=== PATIENT | male | born 1955 | race Caucasian/White ===

== ENCOUNTER 2019-05-09 21:33 | Emergency (ER) | payer OTHER, MEDICARE, MEDICAID ==
[~2019-05-09] VITALS: Ht 152.4 cm; Wt 63.6 kg
[2019-05-09 21:39] VITALS: Ht 152.4 cm; Wt 63.6 kg
--- NOTE | 2019-05-09 21:42 | ERD ---
ER Documentation Chief Complaint Chief Complaint dizzy/palpitation HPI The patient is a 63-year-old male, presenting to the ER from dialysis center because of palpitation and dizziness. He has had dialysis for the last 5 months. Today during dialysis, he received Heparin bolus, he immediately felt palpitation and dizzy and nausea. He had similar symptoms last week during dialysis. Denies syncope, near syncope, neck pain, chest pain, abdominal pain, vomiting, dysuria, diarrhea. He does not smoke nor drink Past medical history: Chronic kidney disease on hemodialysis Wednesday and Wednesday, diabetes mellitus, hypertension, dyslipidemia Past surgical history: Right chest hemodialysis catheter, left upper extremity A V fistula ROS All systems reviewed and are negative except as per history of present illness. Medications Home Meds Reported Medications Ibuprofen* (Ibuprofen*) 800 Mg Tablet, 800 MG PO Q6H PRN for PAIN LEVEL -10 05/09/19 Carvedilol* (Carvedilol*) 6.25 Mg Tablet, 6.25 MG PO DAILY RADHA 1 TABLET BY MOUTH TWICE DAILY FOR 90 DAYS 05/09/19 Aspirin* (Aspirin* EC) 81 Mg Tablet.dr, 81 MG PO DAILY for 30 Days, #30 TAKE 1 TABLET BY MOUTH ONCE DAILY 05/09/19 Sevelamer Carbonate (Sevelamer Carbonate) 800 Mg Tablet, 800 MG PO TID for 30 Days, #90 05/09/19 Lisinopril/Hydrochlorothiazide (Lisinopril-Hctz 10-12.5 mg Tab) 1 Each Tablet, 1 TAB PO DAILY for 30 Days, #30 05/09/19 Allergies Allergies: Coded Allergies: No Known Allergy (Unverified , 05/09/19) Physical Exam Vitals Vital Signs Date Temp Pulse Resp B/P (MAP) Pulse Ox O2 O2 Flow FiO2 Time Delivery Rate 05/09/19 94 19 140/74 99 Room Air 23:17 (96) 05/09/19 99.9 110 20 174/79 99 21:39 (110) Physical Exam Const: No acute distress. Head: Atraumatic. Eyes: Normal Conjunctiva. ENT: Normal External Ears, Nose and Mouth. Neck: Full range of motion. No meningismus. Resp: Clear to auscultation bilaterally. Cardio: Regular tachycardic Abd: Soft, non distended, normal bowel sounds, non tender. Skin: No petechiae or rashes. Back: No midline or flank tenderness. Ext: No cyanosis, or edema. Neur: Awake and alert. No focal deficit Psych: Anxious. Result Diagram: 05/09/19215205/09/192152 Results 24 hrs Laboratory Tests Test 05/09/19 21:53 White Blood Count 8.0 10^3/ul Red Blood Count 3.56 10^6/ul Hemoglobin 10.8 g/dl Hematocrit 31.9 % Mean Corpuscular Volume 89.6 fl Mean Corpuscular Hemoglobin 30.3 pg Mean Corpuscular Hemoglobin Concent 33.9 g/dl Red Cell Distribution Width 16.4 % Platelet Count 206 10^3/UL Mean Platelet Volume 9.2 fl Immature Granulocytes % 0.400 % Neutrophils % 78.7 % Lymphocytes % 4.5 % Monocytes % 13.1 % Eosinophils % 2.4 % Basophils % 0.9 % Nucleated Red Blood Cells % 0.0 /100WBC Immature Granulocytes # 0.030 10^3/ul Neutrophils # 6.3 10^3/ul Lymphocytes # 0.4 10^3/ul Monocytes # 1.1 10^3/ul Eosinophils # 0.2 10^3/ul Basophils # 0.1 10^3/ul Nucleated Red Blood Cells # 0.0 10^3/ul Sodium Level 139 mmol/L Potassium Level 4.0 mmol/L Chloride Level 100 mmol/L Carbon Dioxide Level 26 mmol/L Anion Gap 13 Blood Urea Nitrogen 36 mg/dl Creatinine 6.62 mg/dl Est Glomerular Filtrat Rate mL/min 8 mL/min Glucose Level 186 mg/dl Calcium Level 9.7 mg/dl Troponin I 0.014 ng/ml Current Medications Medications Dose Sig/Letitia Start Time Status Last (Trade) Ordered Route PRN Stop Time Admin Dose Reason Admin 650 mg ONCE ONCE 05/09/19 DC 05/09/19 Acetaminophen PO 23:00 23:17 (Tylenol 05/09/19 23:07 Tab) 325 mg STK-MED 05/09/19 DC Acetaminophen ONCE .ROUTE 23:03 (Tylenol 05/09/19 23:04 Tab) Procedures/[place] [id number] Radiology Main Line: [phone] DIAGNOSTIC IMAGING REPORT Patient: SARITA MONCADA : 1955 Age: 63 Sex: M MR #: [id number] DOS: 05/09/192151 Ordering MD: MI DESAI MD Location: E/R Room/Bed: PROCEDURE: XR Chest. CLINICAL INDICATION: Chest pain. TECHNIQUE: Single frontal view. COMPARISON: None. FINDINGS: There is a tunneled right internal jugular vein dialysis catheter with the tip in the cavoatrial junction. The lungs are clear. The heart size is normal. There is no pleural effusion. There is no pneumothorax. IMPRESSION: 1. Dialysis catheter in satisfactory position. 2. Clear lungs. 3. Otherwise unremarkable chest radiograph. RPTAT: QQ .Frandy Jolly MD, MD Date Time Electronically viewed and signed by .Frandy Jolly MD, MD on 05/09/2019 23:25 .R/ CC: MI DESAI MD [id number] EKG: Read by emergency physician Rate/Rhythm: Sinus tachycardia 110 beats/min QRS, ST, T-waves: No ST elevation, no T inversion Impression: Abnormal EKG MEDICAL MAKING DECISION: The patient is a 63-year-old male, presenting with acute palpitation, resolved, is stable for outpatient follow-up The differential diagnoses considered include but are not limited to adverse side effect to medication, anxiety, PE, pneumothorax, pneumonia Departure Diagnosis: Primary Impression: Palpitation Additional Impression: Anemia Condition: Good Comments I discussed the findings with the patient. I advised the patient to follow-up with the primary physician in about 1-2 days, sooner if needed and return if any concern. Disclaimer: Inadvertent spelling and grammatical errors are likely due to EHR/dictation software use and do not reflect on the overall quality of patient care. Also, please note that the electronic time recorded on this note does not necessarily reflect the actual time of the patient encounter. MI DESAI MD May 09, 2019 21:42
[2019-05-09] MEDS ORDERED: ACETAMINOPHEN 325 MG TAB PO ONE (23:00)
[2019-05-09] MEDS ORDERED: ACETAMINOPHEN 325 MG TAB ONE (23:03)
[2019-05-09] MEDS ORDERED: CARV6.2579 PO (23:24)
[2019-05-09] MEDS ORDERED: ASPI-817 PO (23:24)
[2019-05-09] MEDS ORDERED: LISI1TAB4 PO (23:24)
[2019-05-09] MEDS ORDERED: IBUP-1544 PO (23:24)
[2019-05-09] MEDS ORDERED: SEVE800T23 PO (23:24)
[2019-05-09 23:46] VITALS: BP 147/65; PULSE 87; RESP 16
== END 2019-05-09 23:55 | disposition home or self-care (01) ==
LOC: E/R 21:33
DX: R00.2 Palpitations (principal); D64.9 Anemia, unspecified; I12.0 Hypertensive chronic kidney disease with stage 5 chronic kidney disease or end stage renal disease; N18.6 End stage renal disease; E11.22 Type 2 diabetes mellitus with diabetic chronic kidney disease; Z99.2 Dependence on renal dialysis; Z79.82 Long term (current) use of aspirin
CPT/HCPCS: 36415; 71045; 80048; 84484; 85025; 93005